=== PATIENT | male | born 1960 | race African-American/Black ===

== ENCOUNTER 2021-05-04 17:29 | Emergency (ER) | payer OTHER ==
[~2021-05-04 17:29] MED LIST: CIPRO500 MG PO; DESCOVY 200-251 EACH PO; DRONABINOL10 MG PO; FLAGYL500 MG PO; HARVONI 90-4001 EACH PO; INTELENCE PO; LEVSIN0.125 MG PO; LISINOPRIL-HCT1 EACH PO; NORCO 5-325 TA1 EACH PO; NORVIR100 MG PO; NORVIR80 MG/1 ML PO; PREZCOBIX 8001 EACH PO; REYATAZ100 MG PO; TIVICAY50 MG PO; TRIUMEQ TABLET1 EACH PO; TRUVADA1 EAC1 PO; VIREAD PO
[2021-05-04 17:36] VITALS: BP 132/77
== END 2021-05-04 19:25 | disposition left against medical advice (07) ==
LOC: ER 17:29
DX: M54.9 Dorsalgia, unspecified (principal); Z53.21 Procedure and treatment not carried out due to patient leaving prior to being seen by health care provider